=== PATIENT | male | born 1945 | race African-American/Black ===

== ENCOUNTER 2021-03-06 13:08 | Emergency (ER) | payer OTHER ==
[~2021-03-06 13:08] MED LIST: ACETAMINOPHEN325 MG PO; ADVIL200 MG PO; COLACE100 MG PO; FEOSOL325 MG PO; FLEXERIL10 MG PO; FLOMAX0.4 MG PO; GERITOL COMPLE1 EACH PO; HYDROCODON-ACE1 EAC6 PO; IBUPROFEN800 MG PO; MICON-GUARD 2% TOP; MOBIC7.5 MG PO; OMEPRAZOLE 20MG20 MG PO; PERCOCET 5-3251 EACH PO; PREDNISONE 20MG20 MG PO; TAMSULOSIN HCL0.4 MG PO; TEMAZEPAM 15MG15 MG PO; XARELTO10 MG PO
[2021-03-06 13:49] LABS: BASOPHIL 0.3 % (0-2); HCT 38.4 % (42.0-52.0); HGB 12.9 g/dl (13.2-18.0); LYMPHOCYTE 34.5 % (15-48); MCH 29.5 pg (25.0-31.0); MCHC 33.6 g/dL (32.0-36.0); MCV 87.7 fL (78.0-100.0); MONOCYTE 7.3 % (0-12); MPV 10.4 fL (6.0-9.5); NEUTROPHIL 54.6 % (41-80); NRBC 0; PLT 244 K/uL (150-400); RBC 4.38 M/uL (4.70-6.00); RDW 14.8 % (11.5-14.0)
[2021-03-06 13:52] LABS: INR 1.06 (0.9-1.2); PROTHROMBIN TIME 13.2 SECONDS (11.8-13.4); PTT 29.8 SECONDS (24.4-34.7)
[2021-03-06 14:05] LABS: ALBUMIN 3.7 g/dL (3.4-5.0); BILIRUBIN - TOTAL 0.2 mg/dL (0.2-1.0); BUN/CREAT RATIO (CALC) 10.6 RATIO; CREATININE 0.85 mg/dL (0.67-1.17); POTASSIUM 3.8 mmol/L (3.5-5.1); TOTAL PROTEIN 6.7 g/dL (6.4-8.2)
[2021-03-06 18:25] LABS: PRO-BNP 48 pg/mL (<125)
[2021-03-06] MEDS ORDERED: MEDROL 4MG DOSEP4 MG PO (18:58)
[2021-03-06] MEDS ORDERED: OMEPRAZOLE 20MG20 MG PO (18:58)
== END 2021-03-06 19:28 | disposition home or self-care (01) ==
LOC: FER 13:08
PROVIDERS: Emergency Medicine
DX: R07.89 Other chest pain (principal)
CPT/HCPCS: 36415; 71045; 80053; 83880; 84484; 85025; 85379; 85610; 85730; 93005

== ENCOUNTER 2021-05-09 15:03 | Day surgery (SDCO) | payer OTHER ==
[~2021-05-09] VITALS: Ht 182.9 cm; Wt 94.8 kg
[~2021-05-09 15:03] MED LIST changes: +MEDROL 4MG DOSEP4 MG PO
[2021-05-09 17:23] LABS: BASOPHIL 0.4 % (0-2); EOSINOPHIL 0.3 % (0-7); HCT 42.2 % (42.0-52.0); HGB 13.9 g/dl (13.2-18.0); MCH 28.3 pg (25.0-31.0); MCHC 32.9 g/dL (32.0-36.0); MCV 85.9 fL (78.0-100.0); MONOCYTE 15.8 % (0-12); MPV 10.8 fL (6.0-9.5); NEUTROPHIL 63.2 % (41-80); NRBC 0; PLT 181 K/uL (150-400); RBC 4.91 M/uL (4.70-6.00); RDW 14.1 % (11.5-14.0); WBC 7.8 K/uL (4.0-10.5)
[2021-05-09 17:45] LABS: ALBUMIN 4.2 g/dL (3.4-5.0); BILIRUBIN - TOTAL 0.3 mg/dL (0.2-1.0); BUN/CREAT RATIO (CALC) 11.1 RATIO; CREATININE 0.99 mg/dL (0.67-1.17); GLOBULIN (CALCULATION) 3.4 g/dL; POTASSIUM 4.1 mmol/L (3.5-5.1); TOTAL PROTEIN 7.6 g/dL (6.4-8.2)
[2021-05-09 17:47] LABS: BILIRUBIN NEGATIVE (NEGATIVE); BLOOD TRACE-INTACT Ery/uL (NEGATIVE); CLARITY CLEAR (CLEAR); COLOR YELLOW (YELLOW); GLUCOSE (U) NORMAL (NORMAL); LEUKOCYTES NEGATIVE Leu/uL (NEGATIVE); NITRITE NEGATIVE (NEGATIVE); PROTEIN NEGATIVE (NEGATIVE); SPECIFIC GRAVITY 1.025 (1.001-1.030); UROBILINOGEN 0.2 mg/dL (0.2-1.0); pH 6.5 (5.0-9.0)
[2021-05-09 18:11] LABS: URINARY RBC RARE
[2021-05-09 18:12] LABS: BACTERIA TRACE
[2021-05-09 18:18] LABS: INFLUENZA A NAA NEGATIVE (NEGATIVE)
[2021-05-09 18:27] LABS: CORONAVIRUS 2019 SARS-COV-2 POSITIVE (NEGATIVE)
[2021-05-09] MEDS ORDERED: ADVIL200 M1 PO (23:13)
[2021-05-09] MEDS ORDERED: GERITOL COMPLE1 EACH PO (23:14)
[2021-05-10 06:43] LABS: BASOPHIL 0.3 % (0-2); EOSINOPHIL 0.3 % (0-7); HCT 38.6 % (42.0-52.0); MCH 28.6 pg (25.0-31.0); MCHC 33.7 g/dL (32.0-36.0); MCV 84.8 fL (78.0-100.0); MONOCYTE 14.6 % (0-12); MPV 10.9 fL (6.0-9.5); NEUTROPHIL 52.4 % (41-80); NRBC 0; PLT 162 K/uL (150-400); RBC 4.55 M/uL (4.70-6.00); WBC 6.8 K/uL (4.0-10.5)
[2021-05-10 07:39] LABS: BUN 12 mg/dL (7-18); BUN/CREAT RATIO (CALC) 12.8 RATIO; CHLORIDE 103 mmol/L (98-107); CO2 (BICARBONATE) 27 mmol/L (21-32); CREATININE 0.94 mg/dL (0.67-1.17); GLUCOSE 90 mg/dL (74-106); POTASSIUM 3.4 mmol/L (3.5-5.1)
[2021-05-10 08:03] LABS: MAGNESIUM 1.9 mg/dL (1.8-2.4)
[2021-05-10 08:05] LABS: C-REACTIVE PROTEIN < 0.20 mg/dL (<=0.90)
--- NOTE | 2021-05-10 15:45 | NUR ---
SPOKE WITH Joby YOUNG. SHE ADVISED THAT PT HAS A ROLLING WALKER, ROLLATOR AND WHEELCHAIR AND AN ELEVATED TOLIET SEAT WITH HANDLES. SHE REQUESTS [facility] FOR PT. SENT REFERRAL TO [facility] FOR REVIEW.
[2021-05-11] MEDS ORDERED: IBUPROFEN400 MG PO (12:37)
--- NOTE | 2021-05-11 12:46 | NUR ---
[facility] ACCEPTED PT FOR PHYSICAL THERAPY ONLY. TC TO [facility]. VIDAL HAS RECOMMENDED A UROLOGIST. [place] SENT REFERRAL TO [facility], SCHEDULERS FOR APPT TO SPECIALIST.
[2021-05-14 12:10] LABS: CHLAMYDIA TRACHOMATIS, NAA Negative (Negative); NEISSERIA GONORRHOEAE, NAA Negative (Negative)
== END 2021-05-11 16:08 | disposition home health service (06) ==
LOC: FER 15:03 → FMS 20:29
PROVIDERS: Allergy & Immunology Allergy; Internal Medicine; Nurse Practitioner; ADMIT Internal Medicine
DX: U07.1 COVID-19 (principal); R53.1 Weakness; R91.1 Solitary pulmonary nodule; F17.210 Nicotine dependence, cigarettes, uncomplicated
CPT/HCPCS: 36415; 70450; 71250; 72125; 72131; 76870; 80048; 80053; 81001; 82607; 83735; 83880; 84145; 84439; 84443; 85025; 86140; 87491; 87591; 94010; 94760; 97162; 97166; 97530-GP; 97535; G0378; U0002